=== PATIENT | female | born 1995 | race Caucasian/White ===

== ENCOUNTER 2022-05-17 01:10 | Outpatient (CLI) | payer MEDICAID, SELFPAY ==
--- NOTE | 2022-05-17 07:55 | DI.US_ITS ---
Exam(s) US THYROID EXAM: US THYROID CLINICAL HISTORY: Thyroid nodule,E04.1. TECHNIQUE: Ultrasound thyroid performed using standard protocol. COMPARISON: No exams were available for comparison FINDINGS: ISTHMUS: 3 mm RIGHT LOBE: Size: 5.3 x 1.4 x 1.9 cm Echogenicity: Normal. Vascularity: Normal. Nodules: Nodule 1- upper pole. 1.1 x 0.7 x 1.0 cm. Smoothly marginated very hypoechoic with smooth margins and punctate echogenic foci, TR 5. Nodule 2-mid to lower pole 1.9 x 0.9 x 1.5 cm mixed cystic solid isoechoic indistinct borders punctat e echogenic foci, TR 4. Nodule 3-lower pole 1.9 by 1.0 x 1.6 cm. Solid hypoechoic smooth margins no echogenic foci, TR 4. LEFT LOBE: Size: 4.6 x 1.1 x 1.7 cm Echogenicity: Normal. Vascularity: Normal. Nodules: 0.7 x 0.5 x 0.8 centimeter, solid isoechoic nodule with punctate echogenic foci and ill-defi adina borders, TR 4. OTHER FINDINGS: None. IMPRESSION: Three nodules, TI-RADS category 4 and 5 , in the right thyroid lobe. FNA recommended. DATA REPOSITORY:
== END 2022-05-17 01:30 ==
PROVIDERS: Visit Provider Registered Nurse Maternal Newborn
DX: E04.2 Nontoxic multinodular goiter (principal)
CPT/HCPCS: 76536

== ENCOUNTER 2022-06-05 01:26 | Outpatient (CLI) | payer MEDICAID, SELFPAY ==
--- NOTE | 2022-06-05 07:30 | DI.US_ITS ---
Exam(s) US NEEDLE LOCAL OTHER WO RAD EXAM: US NEEDLE LOCAL OTHER WO RAD CLINICAL HISTORY: right-sided thyroid nodules, (3) TR4 and TR5,ULTRASOUND GUIDED FNA,E04.1. COMPARISON: US US THYROID from 05/17/2022 TECHNIQUE: Ultrasound was provided for the referring physician for guidance with performing fine-nee dle aspiration of thyroid nodules. Please see procedure note for details. FINDINGS: Hard copy images again demonstrate thyroid nodules. Cine images demonstrate needle entering the nodu les. DATA REPOSITORY:
--- NOTE | 2022-06-05 12:00 | PAPNONF_PTH ---
PATIENT: Paula Mata LOC: [facility] U#:[id number] AGE/SX: 26/F ROOM: RE06/05/[address]: Alanna Triana : 1995 BED: DIS: 06/05/2022 SPEC #: [id number] RECD: 06/05/22 13:00 STATUS: RISA RERai #: [id number] BHARTI: 06/05/22 12:[address]: Alanna Triana DEPT: [facility] Cytology RECD BY: Marlene Wheat Tissues: 1 - BODY FLUID CYTO-FINE NEEDLE ASPIRATE-[facility] 2 - BODY FLUID CYTO-FINE NEEDLE ASPIRATE[facility] 3 - BODY FLUID CYTO-FINE NEEDLE ASPIRATE[facility] Procedures: BODY FLUID CYTO-FINE NEEDLE ASPIRATE-[facility] Comments: [id number] (PATH FNA CONSULT) (REFRIGERATED)
--- NOTE | 2022-06-05 16:49 | OPPNE_ITS ---
Date of service: 06/05/22 Time of Service: 16:49 Procedure Note Date of procedure: 06/05/22 Procedure: Ultrasound-guided FNA, right thyroid nodules, pathology present Surgeon/Proceduralist/Physician: Loi Valdez Procedure Diagnosis: Thyroid nodules Procedure Indications: The patient has 3 thyroid nodules in her right thyroid lobe that meet criteria for biopsy. Options were explained to the patient regarding further management. She elected to undergo the above procedure. Consent was filled out and signed prior to surgery. She wished to proceed. Procedure Description: The patient was positioned in supine position with her neck extended. Ultrasound was used to identify the 3 nodules on the right. The patient was th en prepped and draped in appropriate fashion and 1% lidocaine with 1/100,000 epinephrine injected medial to the nodules. Using the ultrasound for localization, a 25-gauge needle was carefully introduced into each thyroid nodule and biopsies were removed. Pathology was available and check for cellular adequacy. Additional draws were done on each thyroid nodule for Afirma testing if it was deemed necessary. The patient tolerated procedure well. Bleeding was minimal and self-limited. Sterile dressings were applied to the two entry points, and the patient was allowed to sit and then stand. Her vital signs remained stable. She tolerated the procedure well. She will remove the bandages tonight and not replace them. She will call with any signs of infection. She will call if she does not hear from me within 1 week with regard to pathology results. She will use ibuprofen or Tylenol for discomfort. She had no further questions. She is comfortable with the plan.
== END 2022-06-05 01:46 ==
PROVIDERS: Visit Provider Registered Nurse Maternal Newborn
DX: E04.1 Nontoxic single thyroid nodule (principal)
CPT/HCPCS: 10005; 76942; 88104

== ENCOUNTER → 2023-05-27 01:57 | Outpatient (CLI) | payer MEDICAID, SELFPAY ==
--- NOTE | 2023-05-27 08:00 | DI.US_ITS ---
Exam(s) US THYROID EXAM: US THYROID CLINICAL HISTORY: Assess for change,multinodular thyroid,e04.2. TECHNIQUE: Ultrasound thyroid performed using standard protocol. COMPARISON: US US THYROID from 05/17/2022 US US NEEDLE LOCAL OTHER WO RAD from 06/05/2022 FINDINGS: ISTHMUS: 3 mm RIGHT LOBE: Size: 4.4 x 1.3 x 1.5 cm Echogenicity: Normal. Vascularity: Normal. Nodules: Nodule 1: Mid right lobe 0.9 by 0.6 x 0.8 cm, stable slightly decreased from prior. Solid, s mooth margins, very hypoechoic, punctate echogenic foci, TR 5. Nodule was previously biopsied. Nodule 2: Mid to lower pole now measured at 2.0 x 0.8 x 1.9 cm. Now mostly solid, isoechoic, smoothly marginated, with punctate echogenic foci. This nodule was previously biopsied. Nodule 3: 1.9 x 1.0 x 1.6 centimeter solid isoechoic nodule with smooth margins and punctate echogeni c foci, TR 4. This nodule was previously biopsied. No change in size or appearance. LEFT LOBE: Size: 4.9 x 1.3 x 1.6 cm Echogenicity: Normal. Vascularity: Normal. Nodules: 8 x 5 x 6 millimeter spongiform appearing nodule upper to mid pole. OTHER FINDINGS: None. IMPRESSION: Nodule 1 and nodule 3 show no significant change in size or appearance. Nodule 2 was previously mixed cystic and solid now mostly solid. It may have mildly increased in size from the prior exam. TR 4 n odule. FNA could be considered. DATA REPOSITORY:
== END ==
PROVIDERS: PCP Family Medicine; Visit Provider Otolaryngology
DX: E04.2 Nontoxic multinodular goiter (principal)
CPT/HCPCS: 76536

== ENCOUNTER 2024-05-05 02:24 | Outpatient (CLI) | payer MEDICAID, SELFPAY ==
--- NOTE | 2024-05-05 07:15 | DI.US_ITS ---
Exam(s) US THYROID EXAM: US THYROID CLINICAL HISTORY: Assess for change,MULTINODULAR THYROID,e04.2. TECHNIQUE: Ultrasound thyroid performed using standard protocol. COMPARISON: US US THYROID from 05/27/2023 This patient underwent ultrasound-guided FNA of 2 right lobe thyroid nodules on 06/05/2022. FINDINGS: Findings both lobes appear similar to the ultrasound study of May 2023. RIGHT THYROID LOBE: Measures 1.7 cm AP x 2 cm wide x 5.8 cm craniocaudal Two small nodules in the superior pole appear unchanged. One of these measures slightly over 1 cm, a s follow Size: Nodule 1. Measures 1.1 x 0.7 x 1.1 cm Composition: Solid-2 points Echogenicity: Hypoechoic-2 points Shape: Wider than taller-0 points Margin: Smooth- 0 points Echogenic Foci: Contains a macro calcification-1 point Total Points for this nodule: 5 ACR Ti-Rads Category: TR4 This can be followed Towards the mid and inferior aspect the right lobe there are 2 nodules again noted, these having unde rgone prior FNA. Nodule #2 Size: Measures 2.3 x 1.0 x 2.3 cm Composition: Predominately solid-2 points Echogenicity: Isoechoic-1 point Shape: Wider than taller- 0 points Margin: Irregular-2 points Echogenic Foci: None-0 points Total points for this nodule: 5 ACR Ti-Rads Category: TR4 This nodule qualifies for FNA as it measures greater than 1.5 cm However, it has undergone previous FNA in June 2022. Nodule #3 this is the most inferior located nodule in the right lobe. This apparently also underwent previous FNA Size: Measures 1.8 by 1.2 x 1.5 cm Composition: Solid-2 points Echogenicity: Isoechoic-1 point Shape: Wider than taller- 0 points Margin: Smooth-0 points Echogenic Foci: None-0 points Total points for this nodule: 3 ACR Ti-Rads Category: 3 This nodule can be followed as it is a TR 3 level nodule which measures less than 2.5 cm ISTHMUS: Normal thickness. There are no nodules in the isthmus. LEFT THYROID LOBE: Measures 1.4 cm AP x 1.7 wide x 5 cm craniocaudal In addition to 2 tiny: Cyst in the superior aspect of the lobe there is again noted and unchanged pro minently solid nodule, as below... Size: This nodule measures 0.8 x 0.5 x 0.7 cm Composition: Dominantly solid-2 points Echogenicity: Isoechoic-1 points Shape: Wider than taller-0 points Margin: Smooth-0 points Echogenic Foci: Comet tail-type-0 points Total points for this nodule: 3 ACR Ti-Rads Category: 3 This TR 3 level nodule can be followed as it is unchanged and measures less than 2.5 cm. LYMPH NODES: There is no significant adenopathy. IMPRESSION: 1. Stable appearance of the four findings in the right lobe, 2 of which have undergone prior FNA. The se exhibit no change in size nor appearance and there are no new right lobe nodules 2. Single small benign-appearing solid nodule in the left lobe also remains unchanged 3. There is no significant lymphadenopathy. DATA REPOSITORY:
== END 2024-05-05 02:44 ==
LOC: DI 02:24
PROVIDERS: Visit Provider Otolaryngology
DX: E04.2 Nontoxic multinodular goiter (principal)
CPT/HCPCS: 76536